=== PATIENT | female | born 2000 | race Caucasian/White ===

== ENCOUNTER 2024-09-10 19:46 | Emergency (ER) | payer SELFPAY ==
[2024-09-10] MEDS: Amoxicillin/Clavulanate K 875-125 MG Tab PO STA (21:29)
== END 2024-09-10 21:32 | disposition home or self-care (01) ==
LOC: MW.ED 19:46
DX: S41.151A Open bite of right upper arm, initial encounter (principal); S61.451A Open bite of right hand, initial encounter; Z79.899 Other long term (current) drug therapy; Z75.3 Unavailability and inaccessibility of health-care facilities; W54.0XXA Bitten by dog, initial encounter
CPT/HCPCS: 99283; A9270; 99282